=== PATIENT | female | born 1955 | race Caucasian/White ===

== ENCOUNTER 2016-04-06 14:50 | Emergency (ER) | payer MEDICAID ==
[~2016-04-06] VITALS: Ht 152.4 cm; Wt 63.5 kg
[2016-04-06 15:49] VITALS: BP 111/69
--- NOTE | 2016-04-06 19:24 | NUR ---
Patient ambulated to bed 2. RN evaluating patient at bedside.
[2016-04-06] MEDS ORDERED: ALBUTEROL SULFATE/IPRATROPIU 3 ML SOL IH ONE (19:40)
[2016-04-06] MEDS ORDERED: predniSONE 20 MG TAB PO ONE (19:40)
--- NOTE | 2016-04-06 19:41 | NUR ---
RT AT BEDSIDE FOR TREATMENT
--- NOTE | 2016-04-06 19:50 | NUR ---
60 Y/O C/O SOB, COUGH, AND BACK PAIN X 2 WKS, GETTING WORSE X 1 DAY. PER PT ALBUTEROL HAS NOT WORK FOR HER ANY MORE. LABORED BREATHING NOTED AND CONSTANT COUGHING, WHEEZING ON R UPPER LOBE. RT CALLED AT BEDSIDE. ER MD NOTIFIED.
[2016-04-06 21:21] VITALS: BP 110/60
--- NOTE | 2016-04-06 21:21 | NUR ---
Patient discharged with v/s stable NO S/S OF RESP DISTRESS, LUNGS CLEAR BILATERAL. Written and verbal after care instructions given and explained. Patient alert, oriented and verbalized understanding of instructions. Ambulatory with steady gait. All questions addressed prior to discharge. ID band removed. Patient advised to follow up with PMD. Rx of ADVAIR given. Patient educated on indication of medication including possible reaction and side effects. Opportunity to ask questions provided and answered.
[2016-09-21] MEDS ORDERED: PROAIR HFA8.5 GM IH (14:37)
== END 2016-04-06 21:21 | disposition home or self-care (01) ==
LOC: MED 14:50
DX: J45.909 Unspecified asthma, uncomplicated (principal)
CPT/HCPCS: 71020; 81002; 94640; 99284; J7512; J7620; Q0092

== ENCOUNTER 2016-09-21 14:26 | Emergency (ER) | payer MEDICAID ==
[~2016-09-21] VITALS: Ht 147.3 cm; Wt 69.9 kg
[2016-09-21 14:32] VITALS: BP 142/90
[2016-09-21] MEDS ORDERED: ALBU0.0946 IH (14:37)
--- NOTE | 2016-09-21 15:25 | NUR ---
Pt taken to bed 6
--- NOTE | 2016-09-21 15:35 | NUR ---
61/F c/o possible bug bite to left lower leg since 07/31/16. Pt states "It started off small but it's getting bigger." Pt has pictures on her phone and has photos of some black possible insect she states she pulled out of the wound. "I don't know maybe it's a spider leg," per patient. Reddened area is dark red, half dollar size, serous draiange noted on her bandage. Pt c/o itching. AOX4, clear speech. VSS.
[2016-09-21] MEDS ORDERED: NEOMYCIN/POLYMYXIN/BACITRACIN 0.9 GM/1 PKT TP ONE (15:40)
[2016-09-21 16:10] VITALS: BP 142/90
--- NOTE | 2016-09-21 16:11 | NUR ---
Patient discharged with v/s stable. Written and verbal after care instructions given and explained. Patient alert, oriented and verbalized understanding of instructions. Ambulatory with steady gait. All questions addressed prior to discharge. ID band removed. Patient advised to follow up with PMD. Rx of KEFLEX 500 MG PO QID, TYLENOL 325 MG 2 TABS PO Q 6 PRN. given. Patient educated on indication of medication including possible reaction and side effects. Opportunity to ask questions provided and answered.
== END 2016-09-21 16:00 | disposition home or self-care (01) ==
LOC: MED 14:26
DX: L03.116 Cellulitis of left lower limb (principal); R51 Headache; R42 Dizziness and giddiness; J45.909 Unspecified asthma, uncomplicated; Z79.899 Other long term (current) drug therapy
CPT/HCPCS: 99283

== ENCOUNTER 2018-07-13 11:57 | Emergency (ER) | payer MEDICAID ==
[~2018-07-13] VITALS: Ht 152.4 cm; Wt 72.2 kg
[~2018-07-13 11:57] MED LIST: ALBU-118 IH
[2018-07-13 11:58] VITALS: BP 155/89
--- NOTE | 2018-07-13 12:10 | NUR ---
BIB SELF. AAO X4 C/O LAC WOUND LEFT KNEE S/P FALL X TODAY. GOT TDAP LAST YEAR. ABRASION NOTED TO R KNEE, R ELBOW. PT DENIES HITTING HER HEAD. PT STATES THAT SHE WAS CROSSING THE STREETS AND SHE TRIPPED ON A LITTLE HOLE ON THE PAVEMENT CAUSING HER TO TRIP. STEADY GAIT. PERRLA BRISK 3 MM. FULL CLEAR SPEECH, MADISON EQUAL STRENGTH TO UPPER AND LOWER EXTREMITIES. DENIES DIZZINESS, SOB. HOB UP. BED SIDE RAILS UP X1. ON LOW BED POSITION, LOCKED. ER MADE AWARE OF PT STATUS.
--- NOTE | 2018-07-13 12:17 | NUR ---
RADIOLOGY AT BEDSIDE.
[2018-07-13] MEDS ORDERED: ACETAMINOPHEN 325 MG TAB PO ONE (13:00)
[2018-07-13] MEDS ORDERED: LIDOCAINE 1% 500 MG/50 ML VIAL INJ SCH (13:00)
[2018-07-13] MEDS ORDERED: LIDOCAINE MPF 1% 5mL VIAL ONE (13:25)
--- NOTE | 2018-07-13 13:32 | NUR ---
LIDOCAINE ORDERED GIVEN TO PROVIDER
--- NOTE | 2018-07-13 14:15 | NUR ---
RESIDENT DOCTOR AT BEDSIDE FOR WOUND SUTURE PROCEDURE. PT IS TOLERATING WELL
[2018-07-13] MEDS ORDERED: BACITRACIN OINT 500 UNITS/GM PKT TP ONE (15:05)
[2018-07-13 15:20] VITALS: BP 145/84
--- NOTE | 2018-07-13 15:20 | NUR ---
Patient discharged with v/s stable. Written and verbal after care instructions given and explained. Patient verbalized understanding. Ambulatory with steady gait. All questions addressed prior to discharge. Advised to follow up with PMD.
== END 2018-07-13 15:20 | disposition home or self-care (01) ==
LOC: MED 11:57
DX: S81.012A Laceration without foreign body, left knee, initial encounter (principal); S80.01XA Contusion of right knee, initial encounter; S93.601A Unspecified sprain of right foot, initial encounter; R03.0 Elevated blood-pressure reading, without diagnosis of hypertension; J45.909 Unspecified asthma, uncomplicated; E78.00 Pure hypercholesterolemia, unspecified; Z98.890 Other specified postprocedural states; Z79.899 Other long term (current) drug therapy; W01.0XXA Fall on same level from slipping, tripping and stumbling without subsequent striking against object, initial encounter; Y93.01 Activity, walking, marching and hiking; Y92.89 Other specified places as the place of occurrence of the external cause; Y99.8 Other external cause status
CPT/HCPCS: 12001; 73562; 73630; 99283; J2001; Q0092

== ENCOUNTER 2022-07-25 16:36 | Emergency (ER) | payer BC, MEDICAID ==
[~2022-07-25] VITALS: Ht 154.9 cm; Wt 75.3 kg
[2022-07-25 16:43] VITALS: BP 153/87
[2022-07-25] MEDS ORDERED: SUD30 PO (18:51)
[2022-07-25] MEDS ORDERED: LIDO100S PO (18:51)
[2022-07-25] MEDS ORDERED: PRED20TA5 PO (18:51)
[2022-07-25] MEDS ORDERED: PROM118S5 PO (18:51)
[2022-07-25 19:45] VITALS: BP 121/80
--- NOTE | 2022-07-25 19:45 | NUR ---
Patient discharged with v/s stable. Written and verbal after care instructions given and explained. Patient alert, oriented and verbalized understanding of instructions. Ambulatory with steady gait. All questions addressed prior to discharge. ID band removed. Patient advised to follow up with PMD. Rx of LIDOCAINE,DELTASOW,PROMETHAZINE, SUDAFED given. Patient educated on indication of medication including possible reaction and side effects. Opportunity to ask questions provided and answered
== END 2022-07-25 19:45 | disposition home or self-care (01) ==
LOC: MED 16:36
DX: J06.9 Acute upper respiratory infection, unspecified (principal); J45.909 Unspecified asthma, uncomplicated; E78.5 Hyperlipidemia, unspecified; Z20.822 Contact with and (suspected) exposure to COVID-19; Z79.899 Other long term (current) drug therapy
CPT/HCPCS: 71046; 99284